=== PATIENT | female | born 1980 | race Caucasian/White ===

== ENCOUNTER → 2020-06-23 | Outpatient (CLI) | payer OTHER ==
[~2020-06-23] MED LIST: ASPIR 8181 MG PO; ATIVAN1 MG PO; FIORICET TAB1 EA PO; GINGER250 MG PO; GLUCOPHAGE500 MG PO; INVOKANA300 MG PO; ISOSORBIDE MONO30 MG PO; LIPITOR TAB 2020 MG PO; LISINOPRIL-HCT1 EAC1 PO; LOPRESSOR50 MG PO; PROTONIX20 MG PO; REGLAN10 MG PO
== END ==
LOC: HEART 5 13:30
DX: R00.2 Palpitations (principal); I49.3 Ventricular premature depolarization; I49.1 Atrial premature depolarization

== ENCOUNTER → 2020-07-15 | Outpatient (CLI) | payer OTHER | LOC: HEART 5 08:00 | DX: R06.02 Shortness of breath (principal); I08.1 Rheumatic disorders of both mitral and tricuspid valves; I08.8 Other rheumatic multiple valve diseases | CPT/HCPCS: 93306 ==

== ENCOUNTER → 2020-08-10 | Outpatient (CLI) | payer OTHER | LOC: EXRD 08-04 15:00 | DX: G90.01 Carotid sinus syncope (principal) | CPT/HCPCS: 93880 ==